=== PATIENT | female | born 1945 | race Caucasian/White ===

== ENCOUNTER 2018-04-29 04:32 | Emergency (ER) | payer OTHER ==
[~2018-04-29] VITALS: Ht 160 cm; Wt 80.2 kg
[~2018-04-29 04:32] MED LIST: ACET-514 PO; ASPI-465 PO; LOSA100T3 PO; MTF1000T PO; OMEP20CA16 PO; ZOC10 PO
[2018-04-29 04:37] VITALS: Ht 160 cm; Wt 80.2 kg
--- NOTE | 2018-04-29 06:29 | ERD ---
ER Documentation Chief Complaint Chief Complaint cough/sob/sore throat x 2 days HPI This is a 72-year-old female with a past medical history of hypertension, hyperlipidemia, diabetes, bronchitis, frequent URIs who is presenting with 2-3 days of progressive worsening fever, chills, body aches, productive cough of clear sputum, mild shortness of breath. The patient denies any wheezing or respiratory distress. She denies chest pain or chest tightness or pleuritic pain. The patient does not endorse any exacerbating or alleviating factors. The patient has had no headache or vision changes. The patient does not endorse neck or back pain. The patient denies lightheadedness or dizziness. The patient denies nausea or vomiting. The patient denies abdominal pain. The patient denies changes to bowel movements or urination. The patient has had no focal deficits. The patient has had no weakness or numbness or tingling to the face or extremities. ROS All systems reviewed and are negative except as per history of present illness. Medications Home Meds Reported Medications Amoxicillin* (Amoxicillin*) 500 Mg Cap, 500 MG PO BID, #20 CAP 04/29/18 Guaifenesin/Dextromethorphan* (Guaifenesin* DM) 1 Each Tablet, 1 TAB PO Q12, TAB.SA 04/29/18 Gabapentin* (Gabapentin*) 300 Mg Capsule, 300 MG PO BID, #60 CAP 04/29/18 Atorvastatin Calcium* (Atorvastatin Calcium*) 20 Mg Tablet, 20 MG PO QHS, #30 TAB 04/29/18 Losartan Potassium* (Cozaar*) 100 Mg Tablet, PO DAILY 03/09/12 Discontinued Reported Medications Simvastatin (Simvastatin) 10 Mg Tablet, PO DAILY 03/09/12 Aspirin (Adult Low Dose Aspirin) 81 Mg Tablet.dr, PO DAILY 03/09/12 Omeprazole* (Omeprazole*) 20 Mg Capsule.dr, PO DAILY 03/09/12 Acetaminophen (Acetaminophen) 325 Mg Tablet, 650 MG PO QID 03/09/12 Metformin* (Glucophage*) 1,000 Mg Tablet, PO BID 03/09/12 Allergies Allergies: Coded Allergies: No Known Allergy (Unverified , 04/29/18) PMhx/Soc History of Surgery: Yes (,Appy) Anesthesia Reaction: No Hx Neurological Disorder: No Hx Respiratory Disorders: Yes (Bronchitis) Hx Cardiac Disorders: Yes (Hypertension, hyperlipidemia, diabetes) Hx Psychiatric Problems: No Hx Miscellaneous Medical Probl: No Hx Alcohol Use: No Hx Substance Use: No Hx Tobacco Use: No Smoking Status: Never smoker FmHx Family History: diabetes Physical Exam Vitals Vital Signs Date Temp Pulse Resp B/P (MAP) Pulse Ox O2 O2 Flow FiO2 Time Delivery Rate 04/29/18 100.2 07:40 04/29/18 100.2 101 20 215/103 95 04:37 (140) Physical Exam Const: No apparent distress, well-developed, well-nourished Head: Normocephalic, Atraumatic Eyes: Normal Conjunctiva. Extraocular movements intact. Pupils equal, round and reactive to light ENT: Normal External Ears, Nose and Mouth. Congested cough. Normal oropharynx. Neck: Full range of motion. No meningismus. Resp: Clear to auscultation bilaterally, No wheezes, rales or rhonchi Cardio: Regular rate and rhythm. No murmurs, rubs or gallops Abd: Soft, non tender, non distended. Normal bowel sounds Skin: No petechiae or rashes Back: No midline tenderness. No CVA tenderness Ext: No cyanosis, or edema Neur: Awake and alert, oriented 4. Cranial nerves intact. No facial droop. Normal strength, sensation and coordination. Psych: Normal Mood and Affect Result Diagram: 04/29/18 0650 04/29/18 0630 Results 24 hrs Laboratory Tests Test 04/29/18 05:30 04/29/18 06:30 04/29/18 06:36 04/29/18 06:50 Urine Color YELLOW Urine Clarity SLIGHTLY CLOUDY Urine pH 5.0 Urine Specific 1.010 [place] Urine Ketones NEGATIVE mg/dL Urine Nitrite NEGATIVE mg/dL Urine Bilirubin NEGATIVE mg/dL Urine NEGATIVE mg/dL Urobilinogen Urine Leukocyte 1+ Sammy/ul Esterase Urine 2 /HPF Microscopic RBC Urine 3 /HPF Microscopic WBC Urine Squamous FEW /HPF Epithelial Cells Urine Bacteria FEW /HPF Urine Hemoglobin 1+ mg/dL Urine Glucose NEGATIVE mg/dL Urine Total NEGATIVE mg/dl Protein Prothrombin Time 11.3 Sec Prothrombin Time 0.9 Ratio INR 0.81 International Normalized Ratio Activated 23.8 Sec Partial Thrombop last Time Sodium Level 141 mmol/L Potassium Level 4.4 mmol/L Chloride Level 105 mmol/L Carbon Dioxide 26 mmol/L Level Anion Gap 10 Blood Urea 13 mg/dl Nitrogen Creatinine 0.44 mg/dl Est Glomerular mL/min Filtrat Rate mL/min Glucose Level 130 mg/dl Calcium Level 9.7 mg/dl Total Bilirubin 0.3 mg/dl Direct Bilirubin 0.00 mg/dl Indirect 0.3 mg/dl Bilirubin Aspartate Amino 28 IU/L Transf (AST/SGOT ) Alanine 36 IU/L Aminotransferase (ALT/SGPT) Alkaline 94 IU/L Phosphatase Troponin I < 0.012 ng/ml Total Protein 7.2 g/dl Albumin 4.1 g/dl Globulin 3.10 g/dl Albumin/Globulin 1.32 Ratio POC Venous 1.7 mmol/L Lactate White Blood 8.4 10^3/ul Count Red Blood Count 4.39 10^6/ul Hemoglobin 13.3 g/dl Hematocrit 37.9 % Mean Corpuscular 86.3 fl Volume Mean Corpuscular 30.3 pg Hemoglobin Mean Corpuscular 35.1 g/dl Hemoglobin Raegan nt Red Cell 13.2 % Distribution Width Platelet Count 213 10^3/UL Mean Platelet 11.3 fl Volume Immature 0.500 % Granulocytes % Neutrophils % 70.4 % Lymphocytes % 18.4 % Monocytes % 7.6 % Eosinophils % 2.6 % Basophils % 0.5 % Nucleated Red 0.0 /100WBC Blood Cells % Immature 0.040 10^3/ul Granulocytes # Neutrophils # 5.9 10^3/ul Lymphocytes # 1.6 10^3/ul Monocytes # 0.6 10^3/ul Eosinophils # 0.2 10^3/ul Basophils # 0.0 10^3/ul Nucleated Red 0.0 10^3/ul Blood Cells # Current Medications Medications Dose Sig/Malcolm Start Time Status Last (Trade) Ordered Route PRN Stop Time Admin Dose Reason Admin Sodium 1,570 ml @ BOLUSX1 04/29/18 04/29/18 Chloride 785 mls/hr ONCE IV 06:30 07:03 04/29/18 08:29 Ketorolac 15 mg ONCE STAT 04/29/18 DC 04/29/18 Tromethamine IV 07:13 07:40 (Toradol) 04/29/18 07:14 650 mg ONCE ONCE 04/29/18 DC 04/29/18 Acetaminophen PO 07:30 07:40 (Tylenol 04/29/18 07:31 Tab) Procedures/MDM MDM The patient's presentation warrants further investigation. Previous medical records, if available, were reviewed. LABS The patient's laboratory testing was obtained and reviewed. No emergent treatment was required unless described below. CBC: No E/o of systemic infection or severe anemia or thrombocytopenia Chemistry: No E/o severe acidosis or alkalosis or renal failure or liver disease or diabetic ketoacidosis PT/INR: No E/o significant coagulopathy Lactate: No E/o severe sepsis Troponin: No E/o acute ischemia Urine: No E/o acute infection or hematuria EKG EKG read by me: Rate/Rhythm: Regular rate and rhythm at a rate of 94 bpm with a PAC evident Intervals: Normal [place]: Normal Impression: No evidence of acute ischemia or arrhythmia IMAGING Imaging and Radiology interpretation reviewed. CXR FINDINGS: The heart is mildly enlarged. Atherosclerosis of the aorta. No evidence of pulmonary vascular congestion acute lung consolidation pleural effusions or pneumothorax. IMPRESSION: No significant change. Mild cardiomegaly without congestive heart failure or pneumonia. Electronically viewed and signed by Physician Chichi on 04/29/2018 06:19 TREATMENT/DISPOSITION The patient influenza study is positive for influenza B, which correlates with her symptoms. The patient's symptoms have been ongoing for 5 days. That said, she is 72. I do intend to treat with Tamiflu. The patient does have an elevated temperature but is technically not febrile. She does not meet criteria for a systemic inflammatory response syndrome. I have low suspicion for sepsis. The patient has no lymphadenopathy. She does have a congested cough. I have very low suspicion for strep pharyngitis. The patient's influenza study was negative. I do not see evidence of pneumonia. The patient is not wheezing. I have low suspicion for asthma, COPD or bronchitis. There is no evidence of heart failure. The patient was treated with IV fluids, Tylenol and Toradol. Upon reevaluation of the patient, symptoms have improved. No emergent diagnoses were identified. At this time, I feel that the patient stable for discharge. The patient was instructed to follow-up with a primary care physician in 1-3 days. The patient will be given strict precautions with which to return to the emergency department. Prescriptions: Ibuprofen, Tamiflu The patient's blood pressure was elevated at greater than 120/80 while in the emergency department. The patient was otherwise stable with no evidence of hypertensive urgency or emergency. The patient does not require admission for blood pressure control. I have discussed with the patient the risks of hypertension. I have instructed the patient to return to the ER for any new or worsening symptoms including chest pain, shortness of breath, headache, blurred vision, confusion, nausea, vomiting or LOC. I have advised the patient to follow up with the primary care physician for outpatient monitoring and treatment for hypertension in 1-3 days. Disclaimer: Inadvertent spelling and grammatical errors are likely due to EHR/dictation software use and do not reflect on the overall quality of patient care. Note that the electronic time recorded on this note does not necessarily reflect the actual time of the patient encounter. Departure Diagnosis: Primary Impression: URI (upper respiratory infection) URI type: unspecified URI Qualified Codes: J06.9 - Acute upper respiratory infection, unspecified Additional Impressions: Cough Chest congestion Fever Fever type: unspecified Qualified Codes: R50.9 - Fever, unspecified Condition: Stable Patient Instructions: Influenza Additional Instructions: Thank you for for coming to [facility] for your care today. Please ask your nurse or provider if you have questions about your care today and do not leave until all your questions have been answered. Please use any medications given as directed and follow-up with your doctor (or the doctor you were referred to) in the next 1-3 days. If you do not have a primary care doctor you may follow up at the [facility] [place] [place] or [facility] (listed below). You may also use motrin and tylenol as needed for fever and/or pain unless instructed otherwise by your provider or nurse. Indications for more urgent follow-up have been discussed, but you may return to the Emergency Department at ANY time for any worrisome or worsening symptoms. If you have abdominal pain, please know that no test or exam you received is perfect and you should follow up within 8 hours for continued pain. If you had any imaging studies today, such as an X-Ray or CT Scan, these studies will be reviewed later by a radiologist. You will be called if there are important findings that were not identified today, so make sure the contact information you provided at registration is correct. If you received any narcotic pain control medicine today, such as Vicodin, Morphine or Dilaudid, your coordination and judgment may be affected for a number of hours. Please do not drive or operate heavy machinery, and you may want someone to assist you at home. If you were given a prescription for narcotic medication, be aware that it is very addictive- use sparingly and only if necessary. PLEASE SEEK FURTHER EVALUATION AND MANAGEMENT AT YOUR DOCTORS OFFICE WITHIN THE NEXT 1-3 DAYS. IT IS YOUR RESPONSIBILITY TO MAKE AN APPOINTMENT FOR FOLOW-UP CARE. IF YOU HAVE A PRIMARY DOCTOR, PLEASE CALL THEIR OFFICE TO SCHEDULE AN APPOI NTMENT FOR FOLLOW UP. IF YOU DO NOT HAVE A PRIMARY DOCTOR YOU CAN CALL OUR PHYSICIAN REFERRAL HOTLINE AT IF YOU CAN NOT AFFORD TO SEE A PHYSICIAN YOU CAN CHOSE FROM THE FOLLOWING [facility]: [facility] [address] [facility] [address] [facility]. [facility] [address] [facility] [address] [facility] [place] [address] [facility] [facility]. [address] SAM ROMANO MD Apr 29, 2018 06:28
[2018-04-29] MEDS ORDERED: SOD CHLORIDE 0.9% IV ONE (06:30)
[2018-04-29] MEDS ORDERED: KETOROLAC 15 MG INJ IV STA (07:13)
[2018-04-29] MEDS ORDERED: ACETAMINOPHEN 325 MG TAB PO ONE (07:30)
[2018-04-29] MEDS ORDERED: AMOX500C2 PO (07:39)
[2018-04-29] MEDS ORDERED: GABA300C16 PO (07:39)
[2018-04-29] MEDS ORDERED: GUAI-158 PO (07:39)
[2018-04-29] MEDS ORDERED: ATOR20TA38 PO (07:39)
[2018-04-29] MEDS ORDERED: OSEL75CA23 PO (07:49)
[2018-04-29] MEDS ORDERED: IBUP-1561 PO (07:49)
[2018-04-29 09:02] VITALS: BP 128/79; PULSE 89; RESP 18
== END 2018-04-29 09:03 | disposition home or self-care (01) ==
LOC: E/R 04:32
DX: J06.9 Acute upper respiratory infection, unspecified (principal); R09.89 Other specified symptoms and signs involving the circulatory and respiratory systems; I10 Essential (primary) hypertension; E11.9 Type 2 diabetes mellitus without complications; R06.02 Shortness of breath; Z79.84 Long term (current) use of oral hypoglycemic drugs; Z79.82 Long term (current) use of aspirin
CPT/HCPCS: 36415; 71045; 80053; 81001; 83605; 84484; 85025; 85610; 85730; 87040; 87086; 87400; 93005; 96374; 99285; J1885; J7030